=== PATIENT | male | born 1945 | race American Indian/Alaskan Native ===

== ENCOUNTER 2016-09-12 14:53 | Emergency (ER) | payer MEDICARE ==
[2016-09-12 15:34] VITALS: BMI 32.1
[2016-09-12 15:39] VITALS: RESP 18; TEMP 98.8; O2SAT 98
[2016-09-12] MEDS ORDERED: TraMADol/Apap 37.5/325 mg Tab PO STA (16:00)
--- NOTE | 2016-09-12 16:00 | ED PDOC ---
Arrival/HPI <Maryam Oleary - Last Filed: 09/12/16 18:21> - General Historian: Patient - History of Present Illness Time/Duration: Other (see hpi) Symptom Onset: Gradual Symptom Course: Worsening Quality: Aching Context: Home <David Wright - Last Filed: 09/12/16 18:38> - General Chief Complaint: Upper Extremity Problem/Injury Time Seen by Provider: 09/12/16 15:48 - History of Present Illness Narrative History of Present Illness (Text): 09/12/16 15:57 This 71 year old male with a past medical history that includes COPD (on home O2 ), asthma, and colon cancer (treated) presents to the emergency department complaining of right shoulder pain x 4 days. Patient stated that he was using a "ac" at gym 2 weeks prior. Patient denies worsening sob, cp, fever, weakness, diplopia, dysarthria, arm swelling, skin rash, trauma, recent travel, dizziness, NEVAREZ, neck pain, back pain, urinary symptoms, palpitation, or abnormal gait. Patient noted he is on O2 every day, all day, and he carries his portable O2 tank every place he goes, and he uses his right arm to pick tank up. (David Wright) Past Medical History - Provider Review Nursing Documentation Reviewed: Yes - Infectious Disease Hx of Infectious Diseases: None - Cardiac Hx Cardiac Disorders: Yes (av replacement) Hx Hypertension: Yes - Pulmonary Hx Respiratory Disorders: Yes Hx Asthma: Yes Hx Chronic Obstructive Pulmonary Disease (COPD): Yes Other/Comment: on O2 @ 3LPM - Neurological Hx Neurological Disorder: No Hx Paralysis: No - HEENT Hx HEENT Disorder: Yes Hx Cataracts: Yes Hx Deafness: Yes (L ear) - Renal Hx Kidney Stones: Yes Other/Comment: nephrectomy - Endocrine/Metabolic Hx Endocrine Disorders: Yes Hx Diabetes Mellitus Type 2: Yes - Hematological/Oncological Hx Blood Disorders: Yes Hx Blood Transfusions: Yes Hx Blood Transfusion Reaction: No Hx Cancer: Yes (colon) - Integumentary Hx Dermatological Disorder: No - Musculoskeletal/Rheumatological Hx Falls: No Hx Fractures: Yes - Gastrointestinal Hx Gastrointestinal Disorders: No - Genitourinary/Gynecological Hx Genitourinary Disorders: No - Psychiatric Hx Psychophysiologic Disorder: No Hx Emotional Abuse: No Hx Physical Abuse: No Hx Substance Use: No - Surgical History Hx Valve Replacement: Yes Other/Comment: nephrectomy. valve replacement - Anesthesia Hx Anesthesia: Yes Hx Anesthesia Reactions: No Hx Malignant Hyperthermia: No - Suicidal Assessment Feels Threatened In Home Enviroment: No <David Wright P - Last Filed: 09/12/16 18:38> Family/Social History - Physician Review Nursing Documentation Reviewed: Yes Family/Social History: No Known Family HX Smoking Status: Never Smoked Hx Alcohol Use: No Hx Substance Use: No <David Wright P - Last Filed: 09/12/16 18:38> Allergies/Home Meds <Maryam Oleary - Last Filed: 09/12/16 18:21> <David Wright P - Last Filed: 09/12/16 18:38> Allergies/Adverse Reactions: Allergies SHELLFISH Allergy (Uncoded 12/03/15 17:17) ITCHING Home Medications: Home Meds Medication Instructions Recorded Confirmed Meclizine HCl 1 tab PO DAILY PRN 05/19/13 09/12/16 Sitagliptin Phosphate [Januvia] 1 tab PO DAILY 05/19/13 09/12/16 Aspirin [Aspirin Chewable] 81 mg PO DAILY 12/03/15 09/12/16 Fluticasone/Salmeterol 500/50 1 puff IH Q12 12/03/15 09/12/16 [Advair Diskus] Metoprolol Tartrate [Lopressor] 50 mg PO BID 12/03/15 09/12/16 Review of Systems - Review of Systems Constitutional: Normal. absent: Fatigue, Weight Change, Fevers, Night Sweats Eyes: Normal ENT: Normal Respiratory: SOB (chronic sob, pt is on O2 at all times). absent: Cough, Sputum , Wheezing Cardiovascular: Normal. absent: Chest Pain, Palpitations, Edema, Calf Pain, Orthopnea, Syncope Gastrointestinal: Normal. absent: Abdominal Pain, Nausea, Vomiting Genitourinary Male: Normal. absent: Dysuria, Frequency, Hematuria Musculoskeletal: Other ((+) right shoulder joint pain). absent: Back Pain, Neck Pain, Joint Swelling, Myalgias Skin: Normal. absent: Rash, Pruritis, Skin Lesions, Laceration Neurological: Normal. absent: Headache, Dizziness Endocrine: Normal Hemo/Lymphatic: Normal Psychiatric: Normal <David Wright P - Last Filed: 09/12/16 18:38> Physical Exam Temperature: Afebrile Blood Pressure: Normal Pulse: Regular Respiratory Rate: Normal Appearance: Positive for: Well-Appearing, Non-Toxic, Comfortable Pain Distress: None Mental Status: Positive for: Alert and Oriented X 3 - Systems Exam Head: Present: Atraumatic, Normocephalic Pupils: Present: PERRL Extroacular Muscles: Present: EOMI Conjunctiva: Present: Normal Mouth: Present: Moist Mucous Membranes Neck: Present: Normal Range of Motion, Trachea Midline. No: Meningeal Signs, MIDLINE TENDERNESS, Paraspinal Tenderness Respiratory/Chest: Present: Clear to Auscultation, Good Air Exchange. No: Accessory Muscle Use, Wheezes, Retracting, Rhonchi Cardiovascular: Present: Regular Rate and Rhythm, Normal S1, S2. No: Murmurs Back: Present: Normal Inspection Upper Extremity: Present: Normal Inspection, NORMAL PULSES, Tenderness ((+) mild lateral and anterior shoulder girdle tenderness. No cellulitis, swelling or abscess. No deformity. Psain on right shoulder is 100 % reproducible.), Swelling, Neurovascularly Intact, Capillary Refill < 2s. No: Cyanosis, Edema, Normal ROM, Erythema, Temperature Abnormalties, Deformity Lower Extremity: Present: Normal Inspection, NORMAL PULSES, Normal ROM. No: Edema Neurological: Present: GCS=15, CN II-XII Intact, Speech Normal, Motor Func Grossly Intact, Normal Sensory Function, Normal Cerebellar Funct, Gait Normal Skin: Present: Warm, Dry, Normal Color. No: Rashes Psychiatric: Present: Alert, Oriented x 3, Normal Insight, Normal Concentration <David Wright - Last Filed: 09/12/16 18:38> Vital Signs Temp Pulse Resp BP Pulse Ox 09/12/16 15:39 98.8 F 77 18 140/86 98 Medical Decision Making <Maryam Oleary - Last Filed: 09/12/16 18:21> Re-evaluation Time: 18:34 Reassessment Condition: Re-examined, Improved <David Wright - Last Filed: 09/12/16 18:38> ED Course and Treatment: 09/12/16 18:21 Patient's pain is distinctly and clearly palpable, with pain with range of motion of shoulder, some left upper extremity edema noted but no fever or erythema, no streaking or cellulitis. NO CHEST PAIN OR SHORTNESS OF BREATH. Pain in shoulder is with shoulder movements, not with walking or exertion. He has strong pulses and is neurologically intact. Nontoxic appearing. Current exam not consistent with septic joint. Discussed with PMD Dr. Karla Berger, and discussed with on-call ortho Dr. Antonio. Follow-up appointment with ortho arranged, ultrasound negative for dvt, follow- up instructions provided. (Maryam Oleary) 09/12/16 16:56 Dr. Oleary came to see patient. He feels right shoulder is mild swelling. He recommends venous Doppler of right UE 09/12/16 18:00 Dr. Oleary spoke with Dr. Raúl richards, who recommended to f/u at his office on Friday Morning 09/12/16 18:34 Re-evaluation. Patient feels better. Discussed results and plan with patient who expresses understanding. All questions answered and there is agreement with the plan to discharge home with instructions. Patient stable for discharge. Return if symptoms persist or worsen (David Wright) - RAD Interpretation Narrative RAD Interpretations (Text): 09/12/16 18:34 Shoulder x-rays: Mild DJD. No fracture or dislocation Venous Doppler Right UE: No DVT as per US (David Wright) Radiology Orders: 09/12/16 15:55 SHOULDER RIGHT [RAD] Stat 09/12/16 16:53 DUPLEX UPPER EXTRM VEIN RIGHT [US] Stat - Medication Orders Current Medication Orders: Discontinued Medications Tramadol/Acetaminophen (Ultracet 37.5/325 Mg) 1 tab PO STAT STA Stop: 09/12/16 16:01 Last Admin: 09/12/16 16:46 Dose: 1 tab - PA / BUSINESS CONTINUITY PLANNING DIRECTOR / Resident Statement / has reviewed & agrees with the documentation as recorded. / has examined the patient and agrees with the treatment plan. <Maryam Oleary - Last Filed: 09/12/16 18:21> Disposition/Present on Arrival <Maryam Oleary - Last Filed: 09/12/16 18:21> - Present on Arrival Any Indicators Present on Arrival: No History of DVT/PE: No History of Uncontrolled Diabetes: No Urinary Catheter: No History of Decub. Ulcer: No History Surgical Site Infection Following: None - Disposition Have Diagnosis and Disposition been Completed?: Yes Disposition Time: 18:35 Patient Plan: Discharge <Wright,Nahim P - Last Filed: 09/12/16 18:38> - Disposition Diagnosis: Shoulder pain Disposition: HOME/ ROUTINE Condition: GOOD Discharge Instructions (ExitCare): Shoulder Pain (ED) Additional Instructions: Call private doctor for follow up visit in 1-2 days. take medication as instructed. return to emergency if symptoms worsen. DR. ANTONIO ORTHOPEDIST IS EXPECTING TO SEE YOU ON FRIDAY MORNING. CALL OFFICE TO MAKE THAT APPOINTMENT. Prescriptions: traMADol/Acetaminophen [Ultracet 325 MG-37.5 MG] 1 tab PO Q6H #15 tab Referrals: Marcelo Berger MD [Primary Care Provider] - Follow up with primary Edwin Antonio DO [Staff Provider] - Follow up with primary
--- NOTE | 2016-09-12 17:31 | RAD ---
PROCEDURE: Radiographs of the Right Shoulder HISTORY: Shoulder pain COMPARISON: No prior. FINDINGS: BONES: Bone alignment and mineralization are normal. No acute fracture. JOINTS: Mild degenerative osteoarthrosis in the acromioclavicular and glenohumeral joints. SOFT TISSUES: Normal. OTHER FINDINGS: None. IMPRESSION: No acute fracture or dislocation. Mild degenerative osteoarthrosis in the acromioclavicular and glenohumeral joints.
--- NOTE | 2016-09-12 18:35 | US ---
PROCEDURE: Right upper extremity venous US CLINICAL HISTORY: Arm pain and swelling Evaluate for deep venous thrombosis. PHYSICIAN(S): Sergey Sosa M.D FINDINGS: The visualized rightinternal jugular vein is sonographically normal and compressible. No evidence of obstruction or thrombus is seen. The visualized segments of the right subclavian vein are patent with normal waveforms. No sonographic evidence of obstruction or thrombosis is seen. The visualized deep venous system of the proximal right upper extremity is sonographically normal and compressible. IMPRESSION: 1. No sonographic evidence for deep venous thrombosis in the visualized segments of the right upper extremity.
[2016-09-12 19:14] VITALS: BP 137/84; PULSE 75
== END 2016-09-12 19:13 | disposition home or self-care (01) ==
LOC: ED 14:53
DX: M25.511 Pain in right shoulder (principal); I10 Essential (primary) hypertension

== ENCOUNTER 2017-12-05 06:16 | Day surgery (SDC) | payer MEDICARE ==
[2017-09-16 11:12] VITALS: BMI 31.8
[2017-12-05] MEDS ORDERED: Propofol 10 mg/ml Inj (20 ML) ONE ×2 (08:39→08:55)
[2017-12-05] MEDS ORDERED: Sodium Chloride 0.9% 1,000 ML IV SCH (09:30)
[2017-12-05 09:36] VITALS: RESP 18
[2017-12-05 10:04] VITALS: BP 149/90; PULSE 74; TEMP 97.8; O2SAT 95
== END 2017-12-05 11:07 | disposition home or self-care (01) ==
LOC: ENDO 06:16
PROVIDERS: ATTEND Internal Medicine Gastroenterology
DX: Z12.11 Encounter for screening for malignant neoplasm of colon (principal); Z85.038 Personal history of other malignant neoplasm of large intestine; K64.1 Second degree hemorrhoids
CPT/HCPCS: 45378; 82948; J2704; J7030; J7040

== ENCOUNTER 2018-04-29 11:46 | Outpatient (CLI) | payer MEDICARE | END 2018-04-29 11:47 | disposition home or self-care (01) | LOC: RAD 11:46 ==